=== PATIENT | male | born 1950 | race African-American/Black ===

== ENCOUNTER 2017-10-26 21:46 | Emergency (ER) | payer MEDICARE, MEDICAID ==
[2017-10-26 21:54] VITALS: BP 149/76
[2017-10-26 23:06] LABS: BASOPHILS # (AUTO) 0.01 x10^3/uL (0-0.1); BASOPHILS % (AUTO) 0 % (0-1); EOSINOPHILS # (AUTO) 0.33 x10^3/uL (0-0.4); EOSINOPHILS % (AUTO) 3 % (1-7); LYMPHOCYTES % (AUTO) 20 % (22-44); MD NO; MEAN CORPUSCULAR HEMOGLOBIN 29.4 pg (27.5-34.5); MEAN CORPUSCULAR HGB CONC 33.6 g/dL (33.2-36.2); MEAN CORPUSCULAR VOLUME 87.5 fL (81-97); MEAN PLATELET VOLUME 7.3 fL (7.4-10.4); MONOCYTES % (AUTO) 6 % (2-9); NEUTROPHILS # (AUTO) 9.02 x10^3/uL (1.8-6.8); NEUTROPHILS % (AUTO) 71 % (42-75); PLATELET COUNT 325 x10^3/uL (130-400); RED BLOOD COUNT 4.43 x10^6/uL (4.38-5.82); RED CELL DISTRIBUTION WIDTH 15.7 % (9.4-14.8)
[2017-10-26 23:19] LABS: ALANINE AMINOTRANSFERASE 156 U/L (12-78); ALBUMIN 2.4 g/dL (3.4-5.0); ANION GAP 6 mmol/L (5-15); CALCIUM 8.6 mg/dL (8.5-10.1); CHLORIDE 106 mmol/L (98-107); CREATININE 0.78 mg/dL (0.7-1.3)
[2017-10-26 23:21] LABS: ALKALINE PHOSPHATASE 154 U/L (45-117); BILIRUBIN,TOTAL 1.5 mg/dL (0.2-1.0); TOTAL PROTEIN 8.2 g/dL (6.4-8.2)
[2017-10-26 23:29] LABS: MICROSCOPIC INDICATED
[2017-10-26 23:30] LABS: CULTURE INDICATED? NO
== END 2017-10-27 01:27 | disposition home or self-care (01) ==
LOC: ED 23:59
DX: R31.0 Gross hematuria (principal); R94.5 Abnormal results of liver function studies; E11.65 Type 2 diabetes mellitus with hyperglycemia; C61 Malignant neoplasm of prostate; I10 Essential (primary) hypertension; J44.9 Chronic obstructive pulmonary disease, unspecified; K21.9 Gastro-esophageal reflux disease without esophagitis; Z90.49 Acquired absence of other specified parts of digestive tract
CPT/HCPCS: 36415; 71045; 80053; 81001; 85025; 93005; 99285

== ENCOUNTER → 2018-06-22 | Outpatient (CLI) | payer MEDICARE, BC ==
[~2018-06-22] MED LIST: ATOR20TA9 PO; BACL20TA PO; CARV-39 PO; INSU100V8 SQ; LACT1CAP35 PO; LOSA100T7 PO; METF500T17 PO; OXYC20TA2 PO; PREG100C PO; RIVA20TA PO; TIOT18CA INH
== END | disposition home or self-care (01) ==
LOC: STAR 13:19
DX: Z01.818 Encounter for other preprocedural examination (principal)
CPT/HCPCS: 93005

== ENCOUNTER → 2018-06-27 | Outpatient (CLI) | payer MEDICARE, BC ==
[~2018-06-27] VITALS: Ht 188 cm; Wt 113.6 kg
[~2018-06-27] MED LIST changes: +ATOR20TA37 PO; -ATOR20TA9 PO
[2018-06-27 11:12] LABS: MICROSCOPIC AUTO
[2018-06-27 11:13] LABS: CULTURE INDICATED? YES
== END | disposition home or self-care (01) ==
LOC: STAR 08:00 → EDSTATUS 07-21 07:30
DX: Z01.818 Encounter for other preprocedural examination (principal); I70.213 Atherosclerosis of native arteries of extremities with intermittent claudication, bilateral legs; E11.9 Type 2 diabetes mellitus without complications; I50.9 Heart failure, unspecified; J44.9 Chronic obstructive pulmonary disease, unspecified; Z85.46 Personal history of malignant neoplasm of prostate
CPT/HCPCS: 81001; 87077; 87086; 87186